=== PATIENT | female | born 2000 | race Hispanic/Latino ===

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

== ENCOUNTER 2019-01-23 08:14 | Inpatient (IN) | payer OTHER ==
[2019-01-23 08:47] VITALS: BMI 40.3
--- NOTE | 2019-01-23 10:01 | PDOC.FPROB ---
FMR OB H&P: HPI - History of Present Illness Chief Complaint: Contractions Indentification: 18yo at 37.5wks by 8.5wk US History of Present Illness: 18yo at 37.5wks by 8.5wk US presents for contractions since last night after intercourse. Reports more painful than the intermittent contractions she had been feeling. Has been drinking >64oz water. Endorses movement. Denies vaginal bleeding, change in discharge, LOF. Primary Care Physician: Dr Lamb FMR OB H&P: Current - Care : 2 Para: 1001 Gestational age: 37.5wks Due date: 02/08/19 Dating Criteria: 8.5wk US - OB Labs Antibody Screen: negative HIV: negative RPR: positive (with negative T pallidum) HepBsAg: negative Rubella: immune Quad screen: negative A1c: 4.8 GBS: unknown - First Trimester Ultrasound First trimester: 8.5wks - Anatomy Survey Anatomy survey: Initial anatomy US grossly nml, amle fetus. Could not visualize face/lips/nose. 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: No hx of PAP, pt 18yo - Social History Social History: Denies tobacco, alcohol and drug use - Family History Family History: None FMR OB H&P: Medications - Current Home Medications: Medication Instructions Recorded Confirmed Type Docusate [Colace] 100 mg PO BID PRN #60 cap 07/15/17 Rx Pnv No.95/Ferrous Fum/Folic AC 1 tablet PO DAILY #30 tablet 07/15/17 Rx [ Tablet] Nitrofurantoin Monohyd/M-Cryst 100 mg PO BID #14 cap 11/27/18 Rx [Macrobid] Ondansetron [Zofran ODT] 4 mg PO Q6H PRN #20 tab 11/27/18 Rx Allergies/Adverse Reactions: Allergies Allergy/AdvReac Type Severity Reaction Status Date / Time amoxicillin Allergy Mild Rash Verified 11/27/18 20:59 FMR OB H&P: ROS - Review of Systems General: denies: fever/chills Eyes: denies: vision changes, double vision, scotomas, floaters ENT: denies: nasal congestion, rhinorrhea Cardiovascular: denies: chest pain, palpitation Respiratory: denies: cough, congestion, shortness of breath Gastrointestinal: denies: nausea, vomiting Genitourinary (Female): reports: contractions. denies: vaginal discharge, vaginal bleeding Musculoskeletal: denies: swelling Neurologic: denies: weakness, headache Integumentary: denies: itching, rash FMR OB H&P: Vital Signs - Heart Tones Baseline: 120 Variability: moderate Acceleration: present Deceleration: absent Category: category 1 FMR OB H&P: Physical Exam - Physical Exam General: awake, alert and oriented, other (pain with contractions) HEENT: normocephalic and atraumatic, MMM, conjunctiva clear, grossly normal hearing Neck: supple, trachea midline Heart: RRR, no murmurs/rubs/gallops General: CTAB, no respiratory distress, no rales/rhonchi, no wheezing Abdomen: soft, gravid, non-tender, bowel sound present Musculoskeletal: pulses present, FROM in all four extremities, no misalignment/ asymmetry, no atrophy Neurological: no focal deficit Skin: good tugor, capillary refill <2 seconds Lymphatic: no unusual bruising or bleeding Psychiatric: intact recent and remote memory, good judgement and insight, normal mood and affect - Pelvic Exam SVE: 2.5/80/-2 FMR OB H&P: A/P - Problem List (1) Normal in third trimester Current Visit: Yes Status: Acute Code(s): Z34.93 - ENCNTR FOR SUPRVSN OF NORMAL PREG, UNSP, THIRD TRIMESTER Disposition: 18yo at 37.5wks by 8.5wk US sIUP - SVE 2.5/80/-2 - Will recheck in 2 hrs - Ordered 1L NS bolus Previous C/S x1 - For Non reassuring FHTs after induction for oligo and BPP 4 - Pt desires repeat C/S Obesity - HgA1c normal 4.8 - No results of 1hr GTT Positive RPR - Ratio 1:1 - T pallidum negative Small subchorionic hemorrhage on sono - No recurrent bleeding and no comment on survey sono UTI - s/p tx with negative LEIDY Elevated BP w/o dx of HTN - BP wnl Discussion: Date/Time: 01/23/19 7293 This H&P was discussed with Dr. Hoang who agree with the above documentation and plan. 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 The patient is a prior CS for NRFHTS after attempted induction, here for possible CTX at 37 weeks 5 days. She is dated by first trimester sono. CX was 2-/-2. She was scheduled for repeat CS first week in February. [place] hard to detect CTX due to BMI. BP ok L&D OBS with plan for repeat CS today if conceren for cervical progress/labor.
[2019-01-23] MEDS ORDERED: Sodium Chloride 0.9% 1,000 ML IV SCH (10:15)
[2019-01-23] MEDS: Lactated Ringer's 1,000 ML IV SCH (12:46)
[2019-01-23] MEDS ORDERED: Promethazine HCl 25 MG/ML VIAL IM PRN ×2 (13:14→16:21)
[2019-01-23] MEDS ORDERED: Docusate 100 MG CAP PO PRN (13:14)
[2019-01-23] MEDS ORDERED: Acetaminophen 500 MG TAB PO PRN (13:14)
[2019-01-23] MEDS ORDERED: Ondansetron PF 4 MG/2 ML Vial IVP PRN ×2 (13:14→16:21)
[2019-01-23] MEDS ORDERED: Bicitra 30 ML UDCUP PO SCH (13:15)
--- NOTE | 2019-01-23 13:17 | PDOC.EVN ---
Event Note - Event Note Event Note: LUIS ANGEL Faculty: Time: 1300 PREOP NOTE (repeat CS note) Situation: Patient's BMI is preventing adequate tracing of CTX on toco. As she is 3cm and 80% effaced, and unclear CTX pattern on toco, I do not feel comfortable with her going home. I have elected to perform her repeat CS now due to early labor DX (>2cm, 80% effaced). No ROM. BMI noted as 40.4 Plan for repeat CS. I have discussed the case with Dr Coleman and anesthesia. Branch Chief has informed me that there is no anesthesia personel available at this moment due to cases in main OR...unless this is a STAT CS. I discussed with him that this is not a stat case at the moment but I am uncomfortable with sending her home as we cannot adequately determine uterine contractions and she is close to 38 weeks. So, not a stat...but should be done as soon as safely possible. Anesthesia will aim to be available by 1400 or so. They will be available, of course, if stat indications present. VTE prophylaxis: We will use SCDs. Due to BMI, we may consider starting low dose prophylactic lovenox starting 12 hours postop as long as intraop EBL is normal.
--- NOTE | 2019-01-23 13:23 | PDOC.EVN ---
Event Note - Event Note Event Note: 01/23/2019 Patient asad q3-4 minutes. Difficulty picking up contractions on monitor due to body habitus. BMI 40. Cervical check /-2 at 1:00. Patient appears to be in early labor. Will proceed with C/S at this time. Anesthesia has been notified. Wendy Lamb, DO PGY-2
[2019-01-23 13:30] LABS: Hemoglobin 12.9 g/dL (12.0-16.0); Mean Corpuscular HGB CONC 33.5 g/dL (32.0-36.0); Mean Corpuscular Hemoglobin 26.6 pg (25.0-35.0); Mean Corpuscular Volume 79.3 fL (78.0-98.0); Mean Platelet Volume 9.6 fL (7.4-10.4); Platelet Count 269 thou/uL (130-400); RBC Distribution Width 14.7 % (11.5-14.5); Red Blood Cell (RBC) Count 4.84 mill/uL (4.00-5.20); White Blood Cell (WBC) Count 9.3 thou/uL (4.8-10.8)
[2019-01-23] MEDS ORDERED: Clindamycin/D5W 900 MG in Premix Bag 1 BAG IVPB SCH (13:30)
[2019-01-23] MEDS ORDERED: Azithromycin 500 MG in Sodium Chloride 0.9% 250 ML 250 ML IVPB SCH (13:30)
[2019-01-23] MEDS ORDERED: Gentamicin 80 MG/2 ML VIAL IVPB SCH (13:30)
[2019-01-23] MEDS ORDERED: Gentamicin Sulfate 120 MG in Premix Bag 1 BAG IVPB SCH (13:45)
[2019-01-23 14:08] LABS: Syphilis Antibody Nonreactive (Nonreactive); Syphilis Antibody Index 0.04 S/CO (<1.00 Non-Reactive)
[2019-01-23 14:09] LABS: HBSAg Index 0.32 S/CO (0-0.99); Hep B Surf Ag Non-Reactive S/CO (NonReactive)
[2019-01-23] MEDS ORDERED: MORPHINE 5 MG/10 ML PF VIAL ONE (14:37)
[2019-01-23] MEDS ORDERED: ePHEDrine/0.9% NaCl/PF SYRINGE 50 mg/10 ml ONE (14:38)
[2019-01-23] MEDS ORDERED: Metoclopramide HCl 10 MG/2 ML VIAL ONE (14:38)
[2019-01-23] MEDS ORDERED: PHENYLEPHRINE-NS 100 MCG/ML 10 ML SYRINGE ONE ×2 (14:38→16:20)
[2019-01-23] MEDS ORDERED: Ondansetron PF 4 MG/2 ML Vial ONE ×2 (14:38→16:20)
[2019-01-23] MEDS ORDERED: Oxytocin 10 UNITS/ML VIAL ONE (14:38)
--- NOTE | 2019-01-23 16:17 | PDOC.EVN ---
Event Note - Event Note Event Note: OBGYN faculty CS NOTE Date: 01/23/19 Time: 1610 Preop DX: Prior CS, BMI 40,4, early labor at 37.5 weeks (2-3cm/80% effaced) Procedure: repeat LTCS; attempted vauum delivery (manual delivery accomplished) Surgeons: Adonis/Carolyn Scrubbed in Attending: Victoriano Assist: Patricia King, MS3 ABX: Gent/Clinda, ZMax SAB Narrative: I was present and assisted with this repeat CS under pfannesnsteil. baby was in cephalic position but non-engaged. Due to baby's non-engaged status and patient' s BMI, bard to get baby head to flex through hysterotomy. Vaccumm applied by Adonis with me at bedside applying fundal pressure...3 attempts with 3 pop offs due to rectus muscle band on left. I made a 3cm rectus cut with mayos and this freeed the baby's head for delivery manually. baby was vigorous at . No complications noted No extension EBL about 600ml by my assessment. [place] on skin due to BMI We will give lovenox 40mg SQ due to BMI starting 8 hours post op...once per day 9ACOG states start at 6-12 hourds post CS). SCDs in use. Full resident dictation to follow
[2019-01-23] MEDS ORDERED: ePHEDrine 50 MG/ML VIAL ONE (16:20)
[2019-01-23] MEDS ORDERED: Ketorolac Tromethamine 30 MG/ML VIAL IVP PRN (16:21)
[2019-01-23] MEDS ORDERED: Eucerin (Mineral Oil/Petrolatum,White) 30 gm Jar TOP PRN (16:21)
[2019-01-23] MEDS ORDERED: diphenhydrAMINE 50 MG/ML VIAL IVP PRN (16:21)
[2019-01-23] MEDS ORDERED: HYDROmorphone 2 MG/ML VIAL SLOW IVP PRN (16:21)
[2019-01-23] MEDS ORDERED: Ondansetron HCl/PF 4 MG/2 ML Vial IVP PRN (16:21)
[2019-01-23] MEDS ORDERED: L&D-Morphine 4 MG/ML VIAL SLOW IVP PRN (16:21)
[2019-01-23] MEDS ORDERED: Promethazine HCl 25 MG SUPP PR PRN (16:21)
[2019-01-23] MEDS ORDERED: Naloxone HCl 0.4 mg/ml Vial IV PRN (16:21)
[2019-01-23] MEDS ORDERED: Meperidine HCl/PF 25 MG/ML VIAL SLOW IVP PRN (16:21)
[2019-01-23] MEDS ORDERED: Naloxone HCl 0.4 mg/ml Vial IVP PRN ×2 (16:21)
[2019-01-23] MEDS ORDERED: Ketorolac Tromethamine 30 MG/ML VIAL IVP SCH (16:30)
[2019-01-23] MEDS ORDERED: Communication Order-Pharmacy FS SCH (16:30)
[2019-01-23] MEDS ORDERED: diphenhydrAMINE 25 MG CAP PO PRN (19:25)
[2019-01-23] MEDS ORDERED: HYDROcodone/Acetaminophen 5/325 mg Tablet PO PRN ×2 (19:25)
[2019-01-23] MEDS ORDERED: Acetaminophen 325 MG TAB PO PRN (19:25)
[2019-01-23] MEDS ORDERED: Lanolin Ointment 7 GM TUBE TOP PRN (19:25)
[2019-01-23] MEDS ORDERED: NS / Oxytocin 40 units/1000ml 1,000 ML IV SCH (19:25)
[2019-01-23] MEDS: Enoxaparin Sodium 40 MG/0.4 ML SYRINGE SC SCH (23:58)
[2019-01-24] MEDS: Lactated Ringer's 1,000 ML IV SCH (00:03)
--- NOTE | 2019-01-24 00:42 | OP ---
DATE OF PROCEDURE: 01/23/2019 RESIDENT SURGEON: Wendy Lamb DO. DROSOPHERE OPERATOR SURGEON: Rosemary Pierson DO. ATTENDING SURGEON: To Pastrana MD PROCEDURE PERFORMED: Repeat low transverse section. PREOPERATIVE DIAGNOSES: 1. Term intrauterine . 2. Previous section. 3. Body mass index 40.4. 4. Early labor at 37.5 weeks with 2-3 cm dilation, 80% effacement. POSTOPERATIVE DIAGNOSES: 1. Term intrauterine , delivered. 2. Previous section. 3. Body mass index 40.4. 4. Early labor at 37.5 weeks with 2-3 cm dilation, 80% effacement. ANESTHESIA: Spinal. INDICATIONS: This is a 18-year-old, G2, P1-0-0-1 at 37 and 5 weeks, who presented to Labor and Delivery with contractions and was found to be in early labor. The patient was asad every 3 to 4 minutes, however, due to body habitus with a BMI of 40.4, it was difficult to greens picker contractions on the tocometer. The patient with prior history of delivery and short interval and is not a good candidate for a TOLAC. Decision was made to proceed with a repeat delivery given that patient is in early labor with 2-3 cm dilation, 80% effacement, along with every 3 to 4 minute contractions where the patient appeared to be in obvious pain. PROCEDURE IN DETAIL: After risks, benefits, and alternatives were explained to the patient, she gave informed consent. Due to amoxicillin allergy, the preoperative antibiotics included clindamycin 900 mg, gentamicin 120 mg, azithromycin 500 mg. The patient was taken to the operating room and spinal anesthesia was initiated. She was placed in the supine position with a left tilt and prepped and draped in the usual sterile fashion. A Pfannenstiel incision was made with a scalpel and carried down to the level of fascia which was sharply nicked. The fascial cut was extended bilaterally with Kan scissors. The superior edges of the cut fascial edges were elevated with Hiren clamps and the underlying rectus muscles were sharply and bluntly dissected free. The recti were divided using two hemostats and Metzenbaum scissors. The peritoneum was entered bluntly and retracted manually. Bladder blade was placed. The uterus was examined for adhesions prior to placing an Gio O. The Gio O was placed without difficulty and a hysterotomy was made in the lower uterine segment with a scalpel in the midline. Clear fluid was seen. The hysterotomy was extended manually. The infant was noted to be vertex and vacuum assistance was attempted. After 3 pop-offs and unsuccessful vacuum delivery, the Gio O was removed and the abdomen was examined for potential restrictions inhibiting delivery of the . An abdominal band was noted and the rectus muscles were cut free on the left laterally to make room for delivery of who was easily delivered by fundal pressure manually after adhesion was accounted for. The mouth and nares were bulb suctioned. Cord was clamped and cut, and grossly normal male was handed to the waiting nurse. Cord blood was obtained. Cord gas was also obtained and sent for analysis. The placenta was manually extracted and found to be intact with three-vessel cord and discarded. The uterus was externalized and endometrium was curetted with a dry lap. The bladder blade was replaced and the uterus was closed with a running locking #1 chromic suture followed by a running nonlocking #1 chromic imbricating suture. Following this, hemostasis was noted. The abdomen was irrigated with saline and suctioned free of clots. The uterus was internalized and the hysterotomy had slight bleeding at the right lateral aspect, which required a simple interrupted suture. The rectus muscles on the left which were transversely cut and were brought together using 2-0 Vicryl in a superior-inferior fashion. The fascia was closed with a running nonlocking 0 Vicryl suture. The subcutaneous tissues were irrigated and there were no bleeders. The skin was approximated with kim and pressure dressing placed. All counts were correct. The patient tolerated the procedure well and was taken to recovery room in stable condition. ESTIMATED BLOOD LOSS: 754 mL. COMPLICATIONS: None. SPECIMENS: Cord blood sent to the lab for blood type and cord gas sent for analysis. FINDINGS: 1. Grossly normal male with Apgars of 9 and 9. 2. Grossly normal placenta with 3-vessel cord discarded. DRAINS: [place] to gravity, draining clear urine. Job ID: [id number] [facility]
--- NOTE | 2019-01-24 02:59 | PDOC.EVN ---
Event Note - Event Note Event Note: 01/23 at 20:00 Patient doing well post-op with complaints about a dry cough. Denies fevers. Pain is currently well controlled. Has not needed any norco or other pain adjuncts at this time BP 142/77 Pulse 78 Temp 99.1 RR 18 Gen: No acute distress. Cardio: RRR. No murmurs or ubs Resp: CTAB Abd: Appropriately TTP. Fundus firm and below umbilicus. A&P: S/P rLTCS, continue with routine care. Pending AM H&H. Will plan for daily Lovenox for DVT ppx since BMI >40 Analia Chandler MD PGY1
[2019-01-24 06:11] LABS: Hemoglobin 9.9 g/dL (12.0-16.0); Mean Corpuscular HGB CONC 33.8 g/dL (32.0-36.0); Mean Corpuscular Hemoglobin 26.8 pg (25.0-35.0); Mean Corpuscular Volume 79.3 fL (78.0-98.0); Mean Platelet Volume 8.9 fL (7.4-10.4); Platelet Count 221 thou/uL (130-400); RBC Distribution Width 14.5 % (11.5-14.5); Red Blood Cell (RBC) Count 3.68 mill/uL (4.00-5.20); White Blood Cell (WBC) Count 8.4 thou/uL (4.8-10.8)
--- NOTE | 2019-01-24 06:41 | PDOC.PP ---
Post Progress Note Post Day #: 1 Subjective: Doing well. PO intake tolerated: yes Flatus: yes Ambulation: yes Vital Signs (12 hours) Temp Pulse Resp BP Pulse Ox 01/24/19 05:00 98.3 F 73 17 108/61 01/24/19 00:30 98.5 F 84 18 120/77 01/23/19 20:00 99.1 F 78 18 142/77 H 99 01/23/19 18:50 98.8 F 85 20 140/90 99 Weight Weight 250 lb TMAX 99.1 last PM with last PM BP 140/70-90s, no SXS... BP normal this AM - Physical Examination General: NAD Cardiovascular: no m/r/g Respiratory: clear to auscultation bilaterally Abdominal: + bowel sounds, lochia, no distention, appropriately TTP Extremities: negative homans (B) Neurological: no gross focal deficits Psychiatric: A&Ox3, normal affect Result Diagrams: 01/24/19 05:49 Additional Labs: Post Labs Blood Type O POSITIVE 01/23/19 13:21 Hep Bs Antigen Non-Reactive S/CO (NonReactive) 01/23/19 13:21 (1) Normal in third trimester Code(s): Z34.93 - ENCNTR FOR SUPRVSN OF NORMAL PREG, UNSP, THIRD TRIMESTER Status: Resolved (2) H/O section Code(s): Z98.891 - HISTORY OF UTERINE SCAR FROM PREVIOUS SURGERY Status: Acute (3) Obesity affecting Code(s): O99.210 - OBESITY COMPLICATING , UNSPECIFIED TRIMESTER Status: Acute - Assessment/Plan POD 1 repeat CS, BMI 40: 1. BP: continue to follow. No MAG ordered as suspected paoin related, no SXS 2. PostOp: routine postop care: dressing still in place, kim placed in OR 3. VTE: SCDs in use and due to BMI, we started prophylactic lovenox. I discussed this with her. She is aware.Recommend to use for 1-2 weeks PP ( although traditionally was 4 weeks PP)
[2019-01-24] MEDS ORDERED: Adacel (T-DAP) 0.5 ML SYRINGE IM ONE (09:00)
[2019-01-24] MEDS: Ferrous Sulfate 325 MG TAB PO SCH ×2 (10:54→17:56)
[2019-01-24] MEDS: Simethicone Chewable 80 MG TAB PO PRN (10:54)
[2019-01-24] MEDS: Prenatal Vitamin 1 TAB PO SCH (10:54)
[2019-01-24] MEDS: Enoxaparin Sodium 40 MG/0.4 ML SYRINGE SC SCH (12:58)
[2019-01-25] MEDS: Enoxaparin Sodium 40 MG/0.4 ML SYRINGE SC SCH ×3 (01:10→23:45)
[2019-01-25] MEDS: Ibuprofen 800 MG TAB PO SCH ×4 (01:10→21:42)
--- NOTE | 2019-01-25 06:30 | PDOC.PP ---
Post Progress Note Post Day #: 2 Subjective: Patient doing well. No significant overnight events. Patient has been ambulating. Not requiring norco for pain control. Patient prefers to stay overnight since her infant is still receiving phototherapy. PO intake tolerated: yes Flatus: yes Ambulation: yes Vital Signs (12 hours) Temp Pulse Resp BP BP Pulse Ox 01/25/19 04:27 98.3 F 70 20 118/73 01/25/19 00:53 98.9 F 88 20 128/84 01/24/19 20:30 99.9 F H 107 H 20 136/82 98 Weight Weight 113.398 kg - Physical Examination General: NAD Cardiovascular: no m/r/g, RRR Respiratory: clear to auscultation bilaterally, non-labored breathing Abdominal: + bowel sounds, lochia (minimal), no distention, appropriately TTP Fundus firm & at: below umbilicus Extremities: negative homans (B) Skin: CS incision dry & intact, no rash Neurological: no gross focal deficits Psychiatric: A&Ox3, normal affect Result Diagrams: 01/24/19 05:49 Additional Labs: Post Labs Blood Type O POSITIVE 01/23/19 13:21 Hep Bs Antigen Non-Reactive S/CO (NonReactive) 01/23/19 13:21 (1) S/P section Code(s): Z98.891 - HISTORY OF UTERINE SCAR FROM PREVIOUS SURGERY Status: Acute - Assessment/Plan POD 2 repeat CS, BMI 40: 1. BP: continue to follow. No high BP since yesterday x1, no SXS 2. Post-Op: routine postop care; Incision clean, dry, intact 3. VTE: Started on ppx lovenox. Recommend to use for 1-2 weeks PP. Dispo: Pt to stay overnight since infant still receiving phototherapy. Plan for d/c home tomorrow.
[2019-01-25] MEDS: Prenatal Vitamin 1 TAB PO SCH (09:12)
[2019-01-25] MEDS: Ferrous Sulfate 325 MG TAB PO SCH ×2 (09:12→17:05)
[2019-01-25] MEDS: Simethicone Chewable 80 MG TAB PO PRN (09:14)
--- NOTE | 2019-01-25 23:53 | PDOC.EVN ---
Event Note - Event Note Event Note: OBGYN faculty: noted in med rec that lovenox was BID schedule...will change to QD as just for prophylaxis
[2019-01-26] MEDS: Ibuprofen 800 MG TAB PO SCH ×2 (05:40→14:23)
--- NOTE | 2019-01-26 07:30 | PDOC.PP ---
Post Progress Note Post Day #: 3 Subjective: Patient doing well. No significant overnight events. Patient has been ambulating without difficulty. Tolerating pain well. PO intake tolerated: yes Flatus: yes Ambulation: yes Vital Signs (12 hours) Temp Pulse Resp BP Pulse Ox 01/25/19 20:00 98.6 F 81 16 124/73 98 Weight Weight 113.398 kg - Physical Examination General: NAD Cardiovascular: no m/r/g, RRR Respiratory: clear to auscultation bilaterally, non-labored breathing Abdominal: + bowel sounds, lochia (minimal), no distention, appropriately TTP Fundus firm & at: below umbilicus Extremities: negative homans (B) Skin: CS incision dry & intact, no rash Neurological: no gross focal deficits Psychiatric: A&Ox3, normal affect Result Diagrams: 01/24/19 05:49 Additional Labs: Post Labs Blood Type O POSITIVE 01/23/19 13:21 Hep Bs Antigen Non-Reactive S/CO (NonReactive) 01/23/19 13:21 (1) S/P section Code(s): Z98.891 - HISTORY OF UTERINE SCAR FROM PREVIOUS SURGERY Status: Acute - Assessment/Plan POD #3 repeat CS, BMI 40: 1. BP have been well controlled 2. Post-Op: routine postop care; Incision clean, dry, intact 3. VTE: Recommend continue to use lovenox for 1-2 weeks PP. Script provided. Dispo: D/C patient home today. Patient to follow up at [facility] on Tuesday 01/30 for staple removal, and at 2 weeks PP for routine PP visit. OBGYN Progress note: Patient seen and examined this AM. Plan discussed. Nj out in clinic. Lovenox x 5 days. RX given and education provided
[2019-01-26 07:55] VITALS: BP 142/89; TEMP 98.1
[2019-01-26] MEDS ORDERED: Enoxaparin Sodium 40 MG/0.4 ML SYRINGE SC SCH (09:00)
[2019-01-26] MEDS: Prenatal Vitamin 1 TAB PO SCH (09:17)
[2019-01-26] MEDS: Ferrous Sulfate 325 MG TAB PO SCH (09:17)
== END 2019-01-26 15:35 | disposition home or self-care (01) | DRG 788 ==
LOC: ER/OP 08:14 → L&D 13:23 → 3SW 18:35
PROVIDERS: ADMIT Obstetrics & Gynecology; ATTEND Emergency Medicine
PROC: 10D00Z1 Extraction of Products of Conception, Low, Open Approach (ICD-10-PCS; principal; 2019-01-23)
DX: O34.211 Maternal care for low transverse scar from previous cesarean delivery (principal); O99.214 Obesity complicating childbirth; E66.9 Obesity, unspecified; Z3A.37 37 weeks gestation of pregnancy; Z37.0 Single live birth
CPT/HCPCS: 36415; 51702; 76815; 82805; 85027; 86780; 86850; 86900; 86901; 87340; 87804; 99285; J0456; J1580; J1650; J1885; J2270; J2405; J2590; J2765; J3490; J7050

== ENCOUNTER 2019-02-06 12:35 | Inpatient (IN) | payer OTHER ==
[2019-12-30 08:46] VITALS: BMI 39.4
[2019-12-30] MEDS ORDERED: Oxytocin 10 UNITS/ML VIAL ONE ×2 (08:48→11:46)
[2019-12-30] MEDS ORDERED: MORPHINE 5 MG/10 ML PF VIAL ONE (08:49)
[2019-12-30] MEDS ORDERED: Ondansetron PF 4 MG/2 ML Vial ONE (08:49)
[2019-12-30] MEDS ORDERED: Ondansetron PF 4 MG/2 ML Vial IVP PRN ×4 (08:52→14:04)
[2019-12-30] MEDS ORDERED: Promethazine HCl 25 MG/ML VIAL IM PRN ×4 (08:52→14:04)
[2019-12-30] MEDS ORDERED: hydrALAZINE 20 MG/ML VIAL SLOW IVP PRN ×3 (08:52→14:04)
[2019-12-30] MEDS ORDERED: Acetaminophen 500 MG TAB PO PRN (08:52)
[2019-12-30] MEDS ORDERED: Docusate 100 MG CAP PO PRN (08:52)
[2019-12-30] MEDS ORDERED: CEFAZOLIN 2 GM in Premix Bag 1 BAG IVPB SCH (09:00)
[2019-12-30] MEDS ORDERED: Bicitra 30 ML UDCUP PO SCH ×2 (09:00)
[2019-12-30] MEDS ORDERED: Lactated Ringer's 1,000 ML IV SCH (09:00)
[2019-12-30] MEDS ORDERED: CEFAZOLIN 3 GM in Premix Bag 1 BAG IVPB SCH (09:00)
[2019-12-30] MEDS ORDERED: Clindamycin/D5W 900 MG in Premix Bag 1 BAG IVPB SCH (09:00)
[2019-12-30 09:23] LABS: Mean Corpuscular HGB CONC 33.9 g/dL (32.0-36.0); Mean Corpuscular Hemoglobin 25.9 pg (25.0-35.0); Mean Corpuscular Volume 76.4 fL (78.0-98.0); Mean Platelet Volume 9.4 fL (7.4-10.4); Platelet Count 259 thou/uL (130-400); Red Blood Cell (RBC) Count 4.62 mill/uL (4.00-5.20); White Blood Cell (WBC) Count 9.2 thou/uL (4.8-10.8)
[2019-12-30] MEDS: Lactated Ringer's 1,000 ML IV SCH ×2 (09:28→13:18)
[2019-12-30 09:30] LABS: Amphetamine Not Detected (NotDetected); Barbiturates Screen Not Detected (NotDetected); Benzodiazepine Screen Not Detected (NotDetected); Cocaine Metabolite Screen Not Detected (NotDetected); Medtox Control Line Valid? VALID (VALID); Medtox Reader # READER 4; Methadone Not Detected (NotDetected); Methamphetamine Not Detected (NotDetected); Opiate Screen Not Detected (NotDetected); Oxycodone Screen Not Detected (NotDetected); Phencyclidine (PCP) Not Detected (NotDetected); THC/Cannabinoid Screen Not Detected (NotDetected); Tricyclic Screen Not Detected (NotDetected)
[2019-12-30 09:56] LABS: Syphilis Antibody Nonreactive (Nonreactive); Syphilis Antibody Index 0.04 S/CO (<1.00 Non-Reactive)
[2019-12-30 09:57] LABS: HBSAg Index 0.22 S/CO (0-0.99); HIV (1/2) Antibody/Antigen Non-Reactive (NonReactive); HIV 1/2 INDEX 0.27 S/CO (<1.00); Hep B Surf Ag Non-Reactive S/CO (NonReactive)
--- NOTE | 2019-12-30 10:09 | PDOC.FPROB ---
FMR OB H&P: HPI - History of Present Illness Chief Complaint: repeat Indentification: 19yo @ 39.1wk History of Present Illness: 19yo @ 39.1wk by 3rd trimester US (ARDEN 01/05/2020) with h/o elevated BPs presents for repeat LTCS. History of c/s x2. Currently endorses contractions every 3-5min. No vaginal bleeding, no LOF. Endorses good movement. No CUELLAR, vision changes, CP, SOB, n/v. Urinary sxs. Primary Care Physician: JAM Damon FMR OB H&P: Current - Care : 3 Para: 2 Gestational age: 39.1 Due date: 01/05/20 Dating Criteria: 3rd trimester US Course/Complications: late to PNC, short interval , elevated BPs - OB Labs Blood type: O RH: positive Antibody Screen: positive HIV: negative RPR: negative HepBsAg: negative Rubella: immune 1 hour gtt: negative GBS: unknown FMR OB H&P: History - Past Medical History PMH: none - OB History OB History: 2 previous c/s - [employer] History [employer] History: none - Surgical History Sx History: LTCS x2 - Social History Social History: no tob, illicits, etOH - Family History Family History: No known history of OB disease or pediatric illness. Other 2 children are healthy. FMR OB H&P: Medications - Current Home Medications: Medication Instructions Recorded Confirmed Type Pnv No.95/Ferrous Fum/Folic AC 1 tablet PO DAILY #30 tablet 07/15/17 12/30/19 Rx [ Tablet] Allergies/Adverse Reactions: Allergies Allergy/AdvReac Type Severity Reaction Status Date / Time amoxicillin Allergy Mild Anaphylaxis Verified 12/25/19 13:47 FMR OB H&P: ROS - Review of Systems General: denies: fever/chills, weight/appetite/sleep changes Eyes: denies: double vision, scotomas ENT: denies: nasal congestion, rhinorrhea Cardiovascular: denies: chest pain, palpitation Respiratory: denies: cough, congestion, shortness of breath Gastrointestinal: denies: abdominal pain Genitourinary (Female): reports: contractions. denies: dysuria, vaginal pain, vaginal bleeding Musculoskeletal: denies: pain Integumentary: denies: rash FMR OB H&P: Vital Signs - Maternal Vital signs: BP 120s/60s. HR 90s, 98% on RA. RR16 - Heart Tones Baseline: 140 Variability: moderate Acceleration: present Deceleration: absent Category: category 1 [place] contractions every: 3-5min FMR OB H&P: Physical Exam - Physical Exam General: NAD, awake, alert and oriented HEENT: MMM Neck: supple Heart: RRR, normal S1/S2, no murmurs/rubs/gallops, no edema General: CTAB, no respiratory distress, good air movement, no wheezing Abdomen: soft, gravid, non-tender, bowel sound present Musculoskeletal: normal gait and station Neurological: no focal deficit Skin: no rash Psychiatric: good judgement and insight, normal mood and affect FMR OB H&P: Results - Labs Lab results: Laboratory Results - last 24 hr 12/30/19 12/30/19 12/30/19 08:54 09:09 09:09 WBC RBC Hgb Hct MCV MCH MCHC RDW Plt Count MPV Urine Opiates Screen Not Detected Ur Oxycodone Screen Not Detected Urine Methadone Screen Not Detected Ur Propoxyphene Screen Not Detected Ur Barbiturates Screen Not Detected Ur Tricyclics Screen Not Detected Ur Phencyclidine Scrn Not Detected Ur Amphetamines Screen Not Detected U Methamphetamines Scrn Not Detected U Benzodiazepines Scrn Not Detected U Cocaine Metab Screen Not Detected U Cannabinoids Screen Not Detected Drug Screen Comment Syphilis IgG/IgM Ab Nonreactive Hep Bs Antigen Non-Reactive HIV 1&2 Antigen & Ab Non-Reactive Blood Type Antibody Screen 12/30/19 12/30/19 09:09 09:09 WBC 9.2 RBC 4.62 Hgb 12.0 Hct 35.3 L MCV 76.4 L MCH 25.9 MCHC 33.9 RDW 18.0 H Plt Count 259 MPV 9.4 Urine Opiates Screen Ur Oxycodone Screen Urine Methadone Screen Ur Propoxyphene Screen Ur Barbiturates Screen Ur Tricyclics Screen Ur Phencyclidine Scrn Ur Amphetamines Screen U Methamphetamines Scrn U Benzodiazepines Scrn U Cocaine Metab Screen U Cannabinoids Screen Drug Screen Comment Syphilis IgG/IgM Ab Hep Bs Antigen HIV 1&2 Antigen & Ab Blood Type O POSITIVE Antibody Screen NEGATIVE FMR OB H&P: A/P - Problem List (1) Third trimester Current Visit: Yes Status: Acute Code(s): Z34.93 - ENCNTR FOR SUPRVSN OF NORMAL PREG, UNSP, THIRD TRIMESTER (2) H/O section Current Visit: No Status: Acute Code(s): Z98.891 - HISTORY OF UTERINE SCAR FROM PREVIOUS SURGERY Disposition: 19yo @ 39.1wk by 3rd trimester US (ARDEN 01/05/2020) with h/o elevated BPs presents for repeat LTCS. #3rd trimester SIUP - h/o LTCS x2, plan for repeat today - Allergy to amoxil is face swelling and rash, will use Gent and Clinda for ppx - plan for repeat LTCS today, reviewed last c/s OP note and noted difficult extraction #H/o elevated BP - no diagnosis of gHTN or PreE. PreE workup negative on 12/25/2019 - BP WNL today, will cont to monitor PCP: JAM Damon IVF: LR @125cc/hr Diet: NPO for c/s VTE: SCDs Dispo: Admit for schd rLTCS. Discussion: Date/Time: 12/30/19 1009 This H&P was discussed with Dr. Ramirez and Dr. Damon who agree with the above documentation and plan. Addendum - Attending - Attending Attestation Date/Time: 12/30/19 1100 I personally evaluated the patient and discussed the management with Dr. Jarquin. I agree with the History, Examination, Assessment and Plan documented above with any addition or exceptions noted below. R/B/A discussed. All questions answered.
[2019-12-30] MEDS ORDERED: Promethazine HCl 25 MG/ML VIAL ONE ×2 (11:15→11:17)
[2019-12-30] MEDS ORDERED: diphenhydrAMINE 50 MG/ML VIAL IVP PRN (12:29)
[2019-12-30] MEDS ORDERED: Naloxone HCl 0.4 mg/ml Vial IVP PRN ×2 (12:29)
[2019-12-30] MEDS ORDERED: HYDROmorphone 2 MG/ML VIAL SLOW IVP PRN (12:29)
[2019-12-30] MEDS ORDERED: Ketorolac Tromethamine 30 MG/ML VIAL IVP PRN (12:29)
[2019-12-30] MEDS ORDERED: Ondansetron HCl/PF 4 MG/2 ML Vial IVP PRN (12:29)
[2019-12-30] MEDS ORDERED: L&D-Morphine 4 MG/ML VIAL SLOW IVP PRN (12:29)
[2019-12-30] MEDS ORDERED: Promethazine HCl 25 MG SUPP PR PRN (12:29)
[2019-12-30] MEDS ORDERED: Naloxone HCl 0.4 mg/ml Vial IV PRN (12:29)
[2019-12-30] MEDS ORDERED: Meperidine HCl/PF 25 MG/ML VIAL SLOW IVP PRN (12:29)
[2019-12-30] MEDS ORDERED: Ketorolac Tromethamine 30 MG/ML VIAL IVP SCH (12:30)
[2019-12-30] MEDS ORDERED: Communication Order-Pharmacy FS SCH (12:30)
[2019-12-30] MEDS ORDERED: Milk Of Magnesia 30 ML UDCUP PO PRN (14:04)
[2019-12-30] MEDS ORDERED: Simethicone Chewable 80 MG TAB PO PRN (14:04)
[2019-12-30] MEDS ORDERED: Acetaminophen 325 MG TAB PO PRN (14:04)
[2019-12-30] MEDS ORDERED: Adacel (T-DAP) 0.5 ML SYRINGE IM ONE (14:04)
[2019-12-30] MEDS ORDERED: Lanolin Ointment 7 GM TUBE TOP PRN (14:04)
--- NOTE | 2019-12-30 16:53 | PDOC.OPDEL ---
OB Operative/Delivery Note Delivery Dr/Surgeon: Bang Barrera/Marisol Pre-Delivery Diagnosis: scheduled section Procedure/Post Delivery Dx: repeat low transverse CS Weeks gestation: 39 (39.1) Anesthesia: spinal - Findings A Sex: male Weight: 3.6 kg - Additional Findings/Plan Placenta delivered: spontaneous findings: low transverse hysterotomy without extension, normal uterus Estimated blood loss: 455 Compilations/Other Findings: Procedure Note Date of Procedure: 12/30/19 Resident Surgeon: Kevan Attending Surgeon: Marisol Procedure: Repeat low transverse caesarean section Preoperative Diagnosis: 1) Term intrauterine 2) Previous x2 3) Late to care 4) Iron def anemia Postoperative Diagnosis: 1) Term IUP, delivered 2) Same as above Anesthesia: spinal Indications: The patient is a 19 year old G3,P2002 female at 39.1 weeks gestation who presents for a repeat scheduled . Procedure in Detail: After risks, benefits, and alternatives were explained to the patient, pt gave informed consent. Pre-operative antibiotics included Clindamycin and Gentamycin secondary to patient having amoxicillin allergy of face swelling and rash. The patient was taken to the operating room and spinal anesthesia was initiated. She was placed in the supine position with a left tilt and prepped and draped in usual sterile fashion. A Pfannenstiel incision was made with a scalpel over the previous incision scar and carried down to the level of the fascia which was sharply nicked. The fascial cut was extended bilaterally with curved Kan scissors. The inferior and superior edges of the cut fascial edges were elevated with Hiren clamps and the underlying rectus muscles were sharply and bluntly dissected free. There was moderate scar tissue requiring futher sharp dissection with the curved Kan scissors between fascial and muscle layers. The recti were noted to be already divided and were further retracted manually. The peritoneum was entered bluntly and retracted manually. Gio O was then placed. A low transverse hysterotomy was made with a new scalpel and the uterus was entered in the midline with blunt dissection. Membranes were intact and ruptured with Sanjana clamps. Thick meconium stained fluid was seen. The hysterotomy was extended manually. The was noted to be vertex, OA position and was easily delivered by fundal pressure. Mouth and nares were bulb suctioned. Delayed cord clamping preformed and then cord was cut and grossly normal male was handed to waiting nursery nurse. Cord blood was obtained. Placenta delivered spontaneously with traction and fundal message, found to be intact with 3 vessel cord and sent to pathology. The uterus was externalized and the endometrium was curetted with a dry lap. The utuer was then internalized for closure. The uterus was closed with a running locking #1 Monocryl followed by a running non-locking #1 Monocryl imbricating suture. Following this, hemostasis was noted. The abdomen suctioned free of clots and inspected. Hysterotomy was again noted to be hemostatic. The fascia was closed with a running non-locking 0-PDS suture. The subcutaneous tissue was irrigated and there were no bleeders. The subcutaneous tissue was re- approximated with a 2-plain gut. The skin was approximated with kim and a wound vac was placed. All counts were correct. The patient tolerated the procedure well and was taken to the recovery room in stable condition. QBL: 455 ml Complications: None Specimens: Cord blood sent to lab for blood type Findings: Grossly normal male with Apgars of 8 and 9. Grossly normal placenta with 3 vessel cord discarded. Drains: Schofield to gravity draining clear urine Post delivery plan: routine recovery Addendum - Attending - Attending Attestation Date/Time: 12/31/19 3225 I was present for the entire procedure and agree with the above documentation. Patient had a significant amount of scar tissue between the rectus muscles but none was adhered to intraabdominal structures. This layer was taken down with bovie cautery. Upper edge of the bladder was identified and not injured during entry into the abdomen. Thick meconium stained fluid noted. Mom to routine recovery, baby to well nursery.
--- NOTE | 2019-12-30 17:17 | PDOC.BPN ---
- Brief Progress Note 4hr Post-C/S Note: S: Doing well, pain well-controlled. No n/v, fever/chills. Urine in shaver straw- colored. No SOB, CP. Good spirits. O: Selected Entries 12/30/19 15:47 Temperature 97.7 F Pulse Rate 68 Blood Pressure 108/58 L [SEMI FOWLERS] Respiratory 14 Rate O2 Sat by Pulse 97 Oximetry Oxygen Delivery Room Air Method Abd: Uterus above umbilicus, firm. appropriately TTP. Shaver straw-colored. UOP - >500cc in past 5 hours. A/P: 19yo @ 39.1wk by 3rd trimester US (ARDEN 01/05/2020) with h/o elevated BPs presented for rLTCS. #3rd trimester SIUP, s/p rLTCS PPD#0 - QBL 455, s/p gent and clinda - adequate UOP, pain controlled. no n/v, fever/chills - cont routine PP care #H/o elevated BP - no diagnosis of gHTN or PreE. PreE workup negative on 12/25/2019 - BP WNL today, will cont to monitor PCP: JAM Damon IVF: SL Diet: Adv as tolerated VTE: SCDs Dispo: S/p schd rLTCS Anticipate LOS>48hrs.
[2019-12-30] MEDS: Ferrous Sulfate 325 MG TAB PO SCH (22:29)
[2019-12-31] MEDS: Docusate 100 MG CAP PO SCH ×3 (02:17→23:22)
[2019-12-31] MEDS: Lactated Ringer's 1,000 ML IV SCH (02:53)
[2019-12-31 05:51] LABS: Hemoglobin 10.2 g/dL (12.0-16.0); Mean Corpuscular HGB CONC 33.6 g/dL (32.0-36.0); Mean Corpuscular Hemoglobin 25.8 pg (25.0-35.0); Mean Corpuscular Volume 76.8 fL (78.0-98.0); Mean Platelet Volume 9.2 fL (7.4-10.4); Platelet Count 213 thou/uL (130-400); RBC Distribution Width 17.8 % (11.5-14.5); Red Blood Cell (RBC) Count 3.95 mill/uL (4.00-5.20); White Blood Cell (WBC) Count 8.8 thou/uL (4.8-10.8)
--- NOTE | 2019-12-31 07:25 | PDOC.OBPPN ---
FMR OB PN: Subj - Interval History Day: 1 Doing well this morning. Passing flatus, no BM. Schofield removed and urinating without difficulty. Pain well-controlled with PO meds. Ambulating a little. going well. No n/v, CP, SOB, fever/chills. Moderate lochia. Ate small amount for dinner last night and tolerated well. FMR OB PN: Obj - Maternal Vital signs: BP: 109/57 HR: 53 RR: 16 Tmax: 98.4 Pox: 99% on RA Wt: 110kg - Urine output I&O: 12/30/19 12/31/19 01/01/20 06:59 06:59 06:59 Intake Total 3506 Output Total 2070 Balance 1436 - Lochia Lochia: moderate - Pain Management Intervention: oral medication FMR OB PN: Exam - Physical Exam General: NAD, awake, alert and oriented HEENT: MMM Neck: supple Heart: RRR, normal S1/S2, no murmurs/rubs/gallops, pulses present, no edema General: CTAB, no respiratory distress, good air movement, no rales/rhonchi, no wheezing Abdomen: soft, gravid, bowel sound present Neurological: no focal deficit Skin: no rash : bandage intact (wound vac in place, c/d/i), no erythema, appropriately tender Psychiatric: intact recent and remote memory, good judgement and insight, normal mood and affect FMR OB PN: Data - Labs Lab results: Laboratory Results - last 24 hr 12/30/19 12/30/19 12/30/19 08:54 09:09 09:09 WBC RBC Hgb Hct MCV MCH MCHC RDW Plt Count MPV Urine Opiates Screen Not Detected Ur Oxycodone Screen Not Detected Urine Methadone Screen Not Detected Ur Propoxyphene Screen Not Detected Ur Barbiturates Screen Not Detected Ur Tricyclics Screen Not Detected Ur Phencyclidine Scrn Not Detected Ur Amphetamines Screen Not Detected U Methamphetamines Scrn Not Detected U Benzodiazepines Scrn Not Detected U Cocaine Metab Screen Not Detected U Cannabinoids Screen Not Detected Drug Screen Comment Syphilis IgG/IgM Ab Nonreactive Hep Bs Antigen Non-Reactive HIV 1&2 Antigen & Ab Non-Reactive Blood Type Antibody Screen 12/30/19 12/30/19 12/31/19 09:09 09:09 05:30 WBC 9.2 8.8 RBC 4.62 3.95 L Hgb 12.0 10.2 L Hct 35.3 L 30.3 L MCV 76.4 L 76.8 L MCH 25.9 25.8 MCHC 33.9 33.6 RDW 18.0 H 17.8 H Plt Count 259 213 MPV 9.4 9.2 Urine Opiates Screen Ur Oxycodone Screen Urine Methadone Screen Ur Propoxyphene Screen Ur Barbiturates Screen Ur Tricyclics Screen Ur Phencyclidine Scrn Ur Amphetamines Screen U Methamphetamines Scrn U Benzodiazepines Scrn U Cocaine Metab Screen U Cannabinoids Screen Drug Screen Comment Syphilis IgG/IgM Ab Hep Bs Antigen HIV 1&2 Antigen & Ab Blood Type O POSITIVE Antibody Screen NEGATIVE FMR OB PN: A/P - Problem List (1) Third trimester Current Visit: Yes Status: Acute Code(s): Z34.93 - ENCNTR FOR SUPRVSN OF NORMAL PREG, UNSP, THIRD TRIMESTER (2) H/O section Current Visit: No Status: Acute Code(s): Z98.891 - HISTORY OF UTERINE SCAR FROM PREVIOUS SURGERY Disposition: 19yo @ 39.1wk by 3rd trimester US (ARDEN 01/05/2020) with h/o elevated BPs presented for rLTCS, now PPD #1 #3rd trimester SIUP, s/p rLTCS PPD#1 - QBL 455, s/p gent and clinda ppx - Schofield removed - Encourage ambulation, PO intake - Motrin for pain control - bowel regime - Monitor lochia - cont routine PP care #Anemia - Hb 12 -> 10 post-op - cont iron supplementation #H/o elevated BP - no diagnosis of gHTN or PreE. PreE workup negative on 12/25/2019 - BP WNL since admission, will cont to monitor PCP: JAM Damon IVF: SL Diet: Adv as tolerated VTE: SCDs Dispo: S/p schd rLTCS, PPD#1. Anticipate discharge tomorrow pending clinical course. Discussion: Date/Time: 12/31/19723 This H&P was discussed with Dr. Morgan and Dr. Damon who agree with the above documentation and plan. Addendum - Attending - Attending Attestation Date/Time: 12/31/19 8765 I personally evaluated the patient and discussed the management with Dr. Jarquin I agree with the History, Examination, Assessment and Plan documented above with any addition or exceptions noted below. Encourage ambulation today. likely d/c tomorrow.
[2019-12-31] MEDS: Ferrous Sulfate 325 MG TAB PO SCH ×2 (08:39→15:43)
[2019-12-31] MEDS: Prenatal Vitamin 1 TAB PO SCH (08:39)
[2019-12-31] MEDS: Polyethylene Glycol 3350 17 GM Packet PO SCH (08:40)
[2019-12-31] MEDS: Ibuprofen 800 MG TAB PO SCH ×2 (16:00→23:22)
[2020-01-01] MEDS: Ibuprofen 800 MG TAB PO SCH ×2 (05:44→14:46)
--- NOTE | 2020-01-01 06:48 | PDOC.PP ---
Post Progress Note Post Day #: 2 Subjective: Doing well this morning. Pain well-controlled. Tolerating PO well without n/v. Passed 1 large grape-fruit sized clot overnight but since lochia as decreased. Ambulating. No fever/chills, CP, SOB. Passing flatus and had BM. Voiding without difficulty. Eager for discharge pending baby's clinical course. PO intake tolerated: yes Flatus: yes Ambulation: yes Vital Signs (12 hours) Temp Pulse Resp BP Pulse Ox 12/31/19 23:10 97.9 F 90 18 116/71 12/31/19 19:49 98.2 F 91 18 103/55 L 98 Weight Weight 110.677 kg - Physical Examination General: NAD (resting comfortably) Cardiovascular: RRR Respiratory: clear to auscultation bilaterally, non-labored breathing Abdominal: + bowel sounds, no distention, appropriately TTP Fundus firm & at: umbilicus Extremities: negative homans (B) (no edema) Skin: CS incision dry & intact (wound vac in place) Neurological: no gross focal deficits Psychiatric: A&Ox3, normal affect Result Diagrams: 12/31/19 05:30 Additional Labs: Post Labs Blood Type O POSITIVE 12/30/19 09:09 Hep Bs Antigen Non-Reactive S/CO (NonReactive) 12/30/19 09:09 (1) Third trimester Code(s): Z34.93 - ENCNTR FOR SUPRVSN OF NORMAL PREG, UNSP, THIRD TRIMESTER Status: Acute (2) H/O section Code(s): Z98.891 - HISTORY OF UTERINE SCAR FROM PREVIOUS SURGERY Status: Acute - Assessment/Plan 19yo @ 39.1wk by 3rd trimester US (ARDEN 01/05/2020) with h/o elevated BPs presented for rLTCS, now PPD #2 #3rd trimester SIUP, s/p rLTCS PPD#2 - QBL 455, s/p gent and clinda ppx - Schofield removed, voiding without difficulty - Ambulating, PO without n/v, no fever/chills, passing flatus - Motrin for pain control - bowel regime - Monitor lochia, decreased from previous days - cont routine PP care #Anemia - Hb 12 -> 10 post-op - cont iron supplementation #H/o elevated BP - no diagnosis of gHTN or PreE. PreE workup negative on 12/25/2019 - BP WNL since admission, will cont to monitor PCP: JAM Damon IVF: RAMON Diet: Regular VTE: SCDs Dispo: S/p schd rLTCS, PPD#2. Anticipate discharge today pending clinical course and baby's course. Addendum - Attending - Attending Attestation Date/Time: 01/01/20 1019 I personally evaluated the patient and discussed the management with Dr. Jarquin I agree with the History, Examination, Assessment and Plan documented above with any addition or exceptions noted below. D/C home today.
[2020-01-01] MEDS: Ferrous Sulfate 325 MG TAB PO SCH ×2 (08:39→14:47)
[2020-01-01] MEDS: Prenatal Vitamin 1 TAB PO SCH (08:41)
[2020-01-01] MEDS: Docusate 100 MG CAP PO SCH (08:41)
[2020-01-01] MEDS: Polyethylene Glycol 3350 17 GM Packet PO SCH (08:42)
--- NOTE | 2020-01-02 07:03 | PDOC.PP ---
Post Progress Note Post Day #: 3 Subjective: Doing well. Voiding. BM. Tolerating PO without n/v. Ambulating. Pain well- controlled. Lochia minimal. No CUELLAR, fever/chills, CP, SOB. Eager for discharge home. PO intake tolerated: yes Flatus: yes Ambulation: yes Vital Signs (12 hours) Temp Pulse Resp BP Pulse Ox 01/01/20 19:13 98 F 85 20 129/69 99 Weight Weight 110.677 kg - Physical Examination General: NAD (resting comfortably) Cardiovascular: RRR Respiratory: clear to auscultation bilaterally, non-labored breathing Abdominal: + bowel sounds, no distention, appropriately TTP Fundus firm & at: below umbilicus Extremities: negative homans (B) (no edema) Skin: CS incision dry & intact (wound vac in place) Psychiatric: A&Ox3, normal affect Result Diagrams: 12/31/19 05:30 Additional Labs: Post Labs Blood Type O POSITIVE 12/30/19 09:09 Hep Bs Antigen Non-Reactive S/CO (NonReactive) 12/30/19 09:09 (1) Third trimester Code(s): Z34.93 - ENCNTR FOR SUPRVSN OF NORMAL PREG, UNSP, THIRD TRIMESTER Status: Acute (2) H/O section Code(s): Z98.891 - HISTORY OF UTERINE SCAR FROM PREVIOUS SURGERY Status: Acute - Assessment/Plan 19yo @ 39.1wk by 3rd trimester US (ARDEN 01/05/2020) with h/o elevated BPs presented for rLTCS, now PPD #3 #3rd trimester SIUP, s/p rLTCS PPD#3 - QBL 455, s/p gent and clinda ppx - Schofield removed PPD #1, voiding without difficulty - Ambulating, PO without n/v, no fever/chills, passing flatus and BM - Motrin for pain control, well-controlled - Monitor lochia, decreased from previous days - cont routine PP care, anticipate discharge today #Anemia - Hb 12 -> 10 post-op - cont iron supplementation #H/o elevated BP - no diagnosis of gHTN or PreE. PreE workup negative on 12/25/2019 - BP WNL since admission, will cont to monitor PCP: JAM Damon IVF: SL Diet: Regular VTE: SCDs Dispo: S/p schd rLTCS, PPD#3. Anticipate discharge today pending clinical course. Addendum - Attending - Attending Attestation Date/Time: 01/02/20 1040 I personally evaluated the patient and discussed the management with Dr. Jarquin I agree with the History, Examination, Assessment and Plan documented above with any addition or exceptions noted below. D/c to [facility].
[2020-01-02 08:01] VITALS: BP 109/59; TEMP 98.3
[2020-01-02] MEDS: Docusate 100 MG CAP PO SCH ×2 (08:43→08:52)
[2020-01-02] MEDS: Prenatal Vitamin 1 TAB PO SCH (08:43)
[2020-01-02] MEDS: Polyethylene Glycol 3350 17 GM Packet PO SCH (08:43)
[2020-01-02] MEDS: Ferrous Sulfate 325 MG TAB PO SCH (08:43)
[2020-01-02] MEDS: Ibuprofen 800 MG TAB PO SCH ×2 (08:52→14:37)
== END 2020-01-02 16:15 | disposition home or self-care (01) | DRG 788 ==
LOC: SURG A 12-30 08:15 → L&D 12-30 09:07 → 3SW 12-30 14:26
PROVIDERS: ADMIT Family Medicine; ATTEND Family Medicine
PROC: 10D00Z1 Extraction of Products of Conception, Low, Open Approach (ICD-10-PCS; principal; 2019-12-30)
DX: O34.211 Maternal care for low transverse scar from previous cesarean delivery (principal); D50.9 Iron deficiency anemia, unspecified; O99.02 Anemia complicating childbirth; Z3A.39 39 weeks gestation of pregnancy; Z37.0 Single live birth
CPT/HCPCS: 36415; 51702; 80306; 85027; 86780; 86850; 86900; 86901; 87340; 87389; 88307; J1580; J2274; J2405; J2550; J2590; J3490

== ENCOUNTER 2019-12-25 13:40 | Day surgery (SDC) | payer OTHER ==
[2019-12-25] MEDS ORDERED: hydrALAZINE 20 MG/ML VIAL SLOW IVP PRN (13:47)
--- NOTE | 2019-12-25 13:53 | PDOC.LDHP ---
Labor and Delivery H&P Chief complaint: decreased movement HPI: 19 yo at 38w3d by 3rd trimester US (ARDEN 01/05/2020) presents for evaluation of elevated BP and decreased movement. Patient was seen in clinic and had two BP readings in 140/80s. She was subsequently sent to hospital due to complaint of decreased movement as well. She denies contractions, abdominal pain, swelling of her lower extremities, headaches, vision changes, vaginal bleeding, or loss of fluid. During the interview, patient reports she can feel her baby moving a lot. She reports otherwise she feels fine and has no other complaints. Current gestational age (weeks): 38 (3d) Due date: 01/05/20 Dating criteria: other (3rd trimester US on 11/17/2019) Grav: 3 Para: 2 OB History Details: 2 prior LTCS Current complications: other (Late to care, Short interval ) Abnormal US findings: No Past Medical History: Obesity Current medications: pre-william vitamins Previous surgical history: low tranverse CS Allergies/Adverse Reactions: Allergies Allergy/AdvReac Type Severity Reaction Status Date / Time amoxicillin Allergy Mild Anaphylaxis Verified 12/25/19 13:47 Social history: none - Physical Exam Vital signs reviewed and normal: yes General: NAD Heart: RRR Lungs: CTAB Abdomen: NTTP Extremeties: no edema FHT: category 1 [place] contractions every: None - OB Labs Blood type: O RH: positive Antibody Screen: negative HIV: negative RPR: negative HEPSAg: negative 1 hour GCT: negative GBS: unknown Urine drug screen: not done Rubella: immune - Assessment Term Intrauterine - Will order BPP/NST - Will order Pre-E labs - If normal anticipate discharge with repeat LTCS for early next week. Decreased Movement - Reports self resolved - BPP/NST as above - Currently Category 1 monitoring strip Short interval - Will schedule for repeat LTCS early next week. - Further discussion to be made regarding contraception with PCP CODE STATUS: FULL CODE PCP: Dr. Kota Damon - [facility] Disposition: Stable, will observe with further evaluation labs and plan for likely discharge if normal. - Plan Plan: observation in L&D
[2019-12-25 13:58] VITALS: BMI 41.8
[2019-12-25 14:28] LABS: #Eosinphils 0.1 thou/uL (0.0-0.7); #Lymphocytes 1.5 thou/uL (1.20-3.40); #Monocytes 0.4 thou/uL (0.11-0.59); %Basophils 0.1 % (0.0-1.0); %Eosinophils 1.1 % (0.0-10.0); %Lymphocytes 14.7 % (28.0-48.0); %Monocytes 4.3 % (0.0-4.0); %Neutrophils 79.8 % (31.0-61.0); Hemoglobin 11.3 g/dL (12.0-16.0); Mean Corpuscular HGB CONC 32.7 g/dL (32.0-36.0); Mean Corpuscular Hemoglobin 25.1 pg (25.0-35.0); Mean Corpuscular Volume 76.7 fL (78.0-98.0); Mean Platelet Volume 8.8 fL (7.4-10.4); Platelet Count 243 thou/uL (130-400); RBC Distribution Width 17.5 % (11.5-14.5); Red Blood Cell (RBC) Count 4.51 mill/uL (4.00-5.20)
[2019-12-25 14:49] LABS: ALT (SGPT) 9 U/L (8-55); AST (SGOT) 14 U/L (5-34); Albumin 3.5 g/dL (3.5-5.0); Alkaline Phosphatase 239 U/L (40-100); Anion Gap 12 mmol/L (10-20); BUN (Urea Nitrogen) 6 mg/dL (7.0-18.7); Bilirubin, Total 0.5 mg/dL (0.2-1.2); Calc. Creatinine Clearance 270 mL/min (70-130); Calcium 8.8 mg/dL (7.8-10.44); Carbon Dioxide 21 mmol/L (22-29); Chloride 106 mmol/L (98-107); Estimated GFR-MDRD Greater than 90; Globulin 3.1 g/dL (2.4-3.5); Glucose 68 mg/dL (70-105); Protein, Total 6.6 g/dL (6.0-8.3); Sodium 135 mmol/L (136-145)
--- NOTE | 2019-12-25 15:12 | ULT ---
Exam: Nonstress biophysical profile HISTORY: Decreased movement. FINDINGS: Nonstress biophysical profiles performed. FINDINGS: Presentation: Vertex heart tones 165 bpm Placenta location: Right-sided Cervix: Cannot be assessed due to shadowing Amniotic fluid index is 5.2 cm Nonstress biophysical profile: tone 2 breathing 2 movements 2 Amniotic fluid 2 Total score 8 out of 8 IMPRESSION: 1. Amniotic fluid index is 5.2 cm. This is below 2.5 percentile for 36 weeks gestation 2. Nonstress physical profile 8 out of 8 Results of study conveyed to Dr. Phuc Lopez via [employer] 12/25/2019 3:09 PM Code CR
[2019-12-25 15:48] LABS: Bilirubin Negative (Negative); Blood, Urine Negative (Negative); Clarity Clear (Clear); Glucose, Urine (Dipstick) Normal (Negative); Leukocyte 25 Leu/uL (Negative); Mucous/LPF Rare LPF (<2+); Nitrite Negative (Negative); Protein, Urine (Dipstick) Negative (Neg-Trace); RBC/HPF 0-3 HPF (0-3); Squamous Epithelial 0-3 HPF (0-3); Urobilinogen Normal mg/dL (Less than 2); WBC/HPF 0-3 HPF (0-3)
[2019-12-25 15:50] LABS: Creatinine, Urine 64.31 mg/dL (47-110); Protein, Urine Random Quant Less than 10 mg/dL (1-14)
[2019-12-25 15:55] LABS: Bacteria/HPF 1+ HPF (None Seen)
--- NOTE | 2019-12-25 16:32 | PDOC.BPN ---
- Brief Progress Note Patient asymptomatic and unremarkable lab evaluation. Return precautions discussed at length. Will discharge home. Plan: Repeat LTCS scheduled for 07 on 12/30/[address] Kota Damon.
== END 2019-12-25 16:26 | disposition home health service (06) ==
LOC: L&D/OP 13:40
PROVIDERS: ATTEND Family Medicine
DX: O36.8130 Decreased fetal movements, third trimester, not applicable or unspecified (principal); O99.213 Obesity complicating pregnancy, third trimester; E66.9 Obesity, unspecified; O34.211 Maternal care for low transverse scar from previous cesarean delivery; Z3A.38 38 weeks gestation of pregnancy; Z88.0 Allergy status to penicillin
CPT/HCPCS: 36415; 76819; 80053; 81003; 81015; 82570; 84156; 85025; 99284

== ENCOUNTER 2022-11-11 20:27 | Emergency (ER) | payer OTHER ==
[2022-11-11 21:20] LABS: #Eosinphils 0.2 thou/uL (0.0-0.7); #Lymphocytes 1.5 thou/uL (1.20-3.40); #Monocytes 0.3 thou/uL (0.11-0.59); #Neutrophils 6.9 thou/uL (1.40-6.50); %Basophils 0.1 % (0.0-1.0); %Monocytes 3.8 % (0.0-10.0); %Neutrophils 77.1 % (42.0-75.0); Hemoglobin 13.5 g/dL (12.0-16.0); Mean Corpuscular HGB CONC 34.3 g/dL (32.0-36.0); Mean Corpuscular Volume 84.5 fl (78.0-98.0); Mean Platelet Volume 7.8 fL (7.4-10.4); Platelet Count 337 10x3/uL (130-400); RBC Distribution Width 12.9 % (11.5-14.5); Red Blood Cell (RBC) Count 4.65 mill/uL (4.20-5.40)
[2022-11-11 21:27] LABS: BHCG - Serum Negative (NEGATIVE); Pregs Control Background? CLEAR/WHITE (CLR/WHITE); Pregs Control Bar Appear? YES (CONTROL BAR)
[2022-11-11 21:39] LABS: ALT (SGPT) 16 U/L (8-55); AST (SGOT) 17 U/L (5-34); Albumin 4.8 g/dL (3.5-5.0); Alkaline Phosphatase 91 U/L (40-110); Anion Gap 13 mmol/L (10-20); BUN (Urea Nitrogen) 11 mg/dL (7.0-18.7); Bilirubin, Total 0.3 mg/dL (0.2-1.2); Calc. Creatinine Clearance 0 mL/min (70-130); Carbon Dioxide 25 mmol/L (22-29); Chloride 105 mmol/L (98-107); Estimated GFR 119; Globulin 3.5 g/dL (2.4-3.5); Glucose 115 mg/dL (70-105); Potassium 3.7 mmol/L (3.5-5.1); Protein, Total 8.3 g/dL (6.0-8.3); Sodium 139 mmol/L (136-145)
[2022-11-11 23:41] LABS: Bilirubin Negative (Negative); Blood, Urine Negative (Negative); Clarity Clear (Clear); Glucose, Urine (Dipstick) Normal (Negative); Ketone, Urine Negative (Negative); Leukocyte Negative Leu/uL (Negative); Nitrite Negative (Negative); Protein, Urine (Dipstick) 10 mg/dL (Neg-Trace); Specific Gravity, Urine 1.029 (1.002-1.036); Urobilinogen Normal mg/dL (Less than 2); pH, Urine 7.5 (5.0-9.0)
== END 2022-11-12 00:41 | disposition home or self-care (01) ==
LOC: ERS 20:27
DX: K60.2 Anal fissure, unspecified (principal); K62.5 Hemorrhage of anus and rectum
CPT/HCPCS: 36415; 80053; 81003; 84703; 85025; 99284

== ENCOUNTER 2023-09-26 08:51 | Emergency (ER) | payer OTHER, SELFPAY | END 2023-09-26 09:25 | disposition home or self-care (01) | LOC: ERS 08:51 | DX: R11.2 Nausea with vomiting, unspecified (principal); E66.9 Obesity, unspecified | CPT/HCPCS: 99283 ==